=== PATIENT | female | born 1940 | race Native Hawaiian/Other Pacific Islander ===

== ENCOUNTER 2018-12-23 15:43 | Outpatient (CLI) | payer OTHER ==
[2018-12-23 16:56] LABS: PLATELET COUNT 293 K/uL (152-353)
[2018-12-23 17:04] LABS: POTASSIUM 3.9 mmol/L (3.6-5.2)
== END 2018-12-23 22:45 | disposition home or self-care (01) ==
LOC: LAB 15:43
PROVIDERS: Family Medicine
DX: I10 Essential (primary) hypertension (principal)
CPT/HCPCS: 80053; 85027